=== PATIENT | male | born 1955 | race Caucasian/White ===

== ENCOUNTER → 2017-04-09 | Day surgery (SDC) | payer BC ==
[~2017-04-09] MED LIST: DOPamine 400 MG/D5W 250 ML 250 ML ONE; Heparin 10,000 UNITS/1 ML VIAL ONE; PHENYLEPHRINE-NS 100 MCG/ML 10 ML SYRINGE ONE; Phenylephrine 10 MG/NS 250 ML 250 ML ONE; Propofol 500 MG/50 ML VIAL ONE
[2017-04-09 07:45] LABS: #Basophils 0.1 thou/uL (0.0-0.2); #Eosinphils 0.1 thou/uL (0.0-0.7); #Lymphocytes 1.4 thou/uL (1.20-3.40); #Monocytes 0.4 thou/uL (0.11-0.59); #Neutrophils 3.2 thou/uL (1.40-6.50); %Eosinophils 2.7 % (0.0-10.0); %Lymphocytes 26.7 % (21.0-51.0); %Monocytes 7.4 % (0.0-10.0); %Neutrophils 62.3 % (42.0-75.0); Mean Corpuscular Hemoglobin 30.8 pg (27.0-31.0); Mean Corpuscular Volume 93.3 fl (80.0-94.0); Mean Platelet Volume 6.9 fL (7.4-10.4); Platelet Count 186 thou/uL (130-400); Red Blood Cell (RBC) Count 4.88 mill/uL (4.70-6.10); White Blood Cell (WBC) Count 5.1 thou/uL (4.8-10.8)
[2017-04-09 07:56] LABS: Prothrombin Time 12.9 SEC (12.0-14.7)
[2017-04-09 07:57] LABS: PTT 31.5 SEC (22.9-36.1)
[2017-04-09 08:05] LABS: Anion Gap 14 mmol/L (10-20); BUN (Urea Nitrogen) 20 mg/dL (8.4-25.7); Calc. Creatinine Clearance 103 mL/min (70-130); Calcium 9.5 mg/dL (7.8-10.44); Carbon Dioxide 22 mmol/L (23-31); Chloride 108 mmol/L (98-107); Estimated GFR-MDRD 69; Glucose 115 mg/dL (80-115); Potassium 4.1 mmol/L (3.5-5.1); Sodium 140 mmol/L (136-145)
--- NOTE | 2017-04-09 14:13 | OP ---
DATE OF PROCEDURE: 04/09/2017 ELECTROPHYSIOLOGY STUDY AND ATRIAL FLUTTER ABLATION REPORT REFERRING PHYSICIAN: Dr. Lunsford REASON FOR PROCEDURE: Mr. Monaco is a 61-year-old man with prior history of hypertension, hyperlipidemia, and normal LVEF, who presented with sustained typical appearing atrial flutter on 03/29/2017 which spontaneously terminated. He had prior episodes of sustained palpitations as well. He is here for atrial flutter ablation. PROCEDURE: The patient received deep sedation by Anesthesia specialist. After adequate level of sedation achieved, the right femoral venous area was prepped, draped and anesthetized with subcutaneous lidocaine and with a multipurpose needle, two 8-Stateless short sheaths were introduced. Through this a standard Decapolar CS catheter was advanced to His bundle, right ventricle, right atrial and eventually the CS area. Also, a ThermoCool SSFT catheter was advanced into the right atrium. Comprehensive EP study was performed with the following findings; Baseline CL is 1100 milliseconds in sinus rhythm, WA 178, QRS 86, QT 384, AH 121, HV 52 milliseconds. The sinus node recovery time is 1835, corrected 235 milliseconds. The AV Wenckebach cycle length was 300 milliseconds. AV alhaji ERP was 600/360 at baseline. No dual AV alhaji physiology was observed. Burst atrial pacing did not induce sustained atrial flutter, but due to the typical appearance of the presenting rhythm on EKG, we decided to proceed with cavotricuspid isthmus ablation. 3D mapping of the right atrium was obtained. During CS pacing cavotricuspid isthmus ablation was performed with a total of 5 ablations and total burn time about 6 minutes of 40 arriola lesions delivered. Temperature was monitored throughout. With the CTI ablation the trans-isthmus time increased from initial 30 milliseconds to 170 milliseconds. Cavotricuspid isthmus block was demonstrated with activation mapping during CS proximal pacing demonstrating longest activation times by the cavotricuspid isthmus ablation line. Subsequently, repeat EP study was performed demonstrating not re-inducible atrial flutter. On the other hand spontaneous PACs and were seen during the dopamine administration. Very short burst of PVCs were also observe. CONCLUSION: 1. Successful cavotricuspid isthmus ablation. 2. No re-inducible sustained arrhythmias. PLAN: Continue aspirin, hence low CHADS VAS score and monitor for development of further atrial arrhythmias. At this point, it is reasonable to continue beta blockade as well if needed. MTDD
--- NOTE | 2017-04-10 23:34 | EKG ---
Test Reason : PREOP Blood Pressure : / mmHG Vent. Rate : 050 BPM Atrial Rate : 050 BPM P-R Int : 178 ms QRS Dur : 076 ms QT Int : 396 ms P-R-T Axes : 065 014 029 degrees QTc Int : 361 ms Sinus bradycardia Otherwise normal ECG When compared with ECG of 09-MAY-1996 15:20, No significant change was found Confirmed by Meggan CHEUNG ([id number]) on 04/10/2017 11:34:42 PM Referred By: [facility] Confirmed By:Meggan CHEUNG
--- NOTE | 2017-04-10 23:36 | EKG ---
Test Reason : POST ABLATION Blood Pressure : / mmHG Vent. Rate : 043 BPM Atrial Rate : 043 BPM P-R Int : 214 ms QRS Dur : 088 ms QT Int : 446 ms P-R-T Axes : 025 046 015 degrees QTc Int : 376 ms Marked sinus bradycardia with 1st degree A-V block Abnormal ECG When compared with ECG of 09-APR-2017 07:45, (Unconfirmed) KS interval has increased Confirmed by Meggan CHEUNG ([id number]) on 04/10/2017 11:35:33 PM Referred By: [facility] Confirmed By:Meggan CHEUNG
== END ==
LOC: CCL 05:50
PROVIDERS: ATTEND Internal Medicine Cardiovascular Disease
DX: I48.92 Unspecified atrial flutter (principal); I10 Essential (primary) hypertension; E78.5 Hyperlipidemia, unspecified; Z79.899 Other long term (current) drug therapy; Z98.52 Vasectomy status; Z87.19 Personal history of other diseases of the digestive system
CPT/HCPCS: 36415; 80048; 85025; 85610; 85730; 93005; 93010; 93613; 93623; 93653; C1730; C1769; J1265; J1644; J2704

== ENCOUNTER 2018-08-28 00:36 | Outpatient (CLI) | payer BC ==
[2018-08-28 08:54] LABS: Hemoglobin 14.1 g/dL (14.0-18.0); Mean Corpuscular HGB CONC 33.3 g/dL (32.0-36.0); Mean Corpuscular Hemoglobin 31.3 pg (27.0-31.0); Mean Corpuscular Volume 93.8 fL (78.0-98.0); Mean Platelet Volume 7.6 fL (7.4-10.4); Platelet Count 169 thou/uL (130-400); Red Blood Cell (RBC) Count 4.51 mill/uL (4.70-6.10); White Blood Cell (WBC) Count 5.7 thou/uL (4.8-10.8)
[2018-08-28 08:58] LABS: INR-International Normal Ratio 1.1; Prothrombin Time 13.8 SEC (12.0-14.7)
[2018-08-28 08:59] LABS: PTT 34.4 SEC (22.9-36.1)
[2018-08-28 09:23] LABS: Anion Gap 11 mmol/L (10-20); BUN (Urea Nitrogen) 18 mg/dL (8.4-25.7); Calc. Creatinine Clearance 0 mL/min (70-130); Calcium 9.7 mg/dL (7.8-10.44); Carbon Dioxide 27 mmol/L (23-31); Chloride 108 mmol/L (98-107); Estimated GFR-MDRD 62; Glucose 108 mg/dL (80-115); Potassium 4.5 mmol/L (3.5-5.1); Sodium 141 mmol/L (136-145)
--- NOTE | 2018-08-30 21:11 | EKG ---
Test Reason : Blood Pressure : / mmHG Vent. Rate : 040 BPM Atrial Rate : 040 BPM P-R Int : 204 ms QRS Dur : 082 ms QT Int : 448 ms P-R-T Axes : 053 038 037 degrees QTc Int : 365 ms Marked sinus bradycardia Abnormal ECG When compared with ECG of 09-APR-2017 10:28, No significant change was found Confirmed by Meggan CHEUNG ([id number]) on 08/30/2018 9:11:09 PM Referred By: [facility] Confirmed By:eMggan CHEUNG
== END 2018-08-28 00:37 | disposition home or self-care (01) ==
LOC: LABBT 00:36
PROVIDERS: ATTEND Internal Medicine Cardiovascular Disease
DX: Z01.818 Encounter for other preprocedural examination (principal); I48.91 Unspecified atrial fibrillation
CPT/HCPCS: 80048; 85027; 85610; 85730; 93005; 93010

== ENCOUNTER 2018-09-02 05:58 | Observation (INO) | payer BC ==
[2018-08-28 08:08] VITALS: BMI 30.3
[2018-09-02] MEDS ORDERED: Heparin 10,000 UNITS/1 ML VIAL ONE ×2 (06:35→09:28)
[2018-09-02] MEDS ORDERED: Lidocaine 1% (PF) 30 ML VIAL ONE (06:36)
[2018-09-02] MEDS ORDERED: Midazolam HCl 2 mg/2 ml Vial ONE (08:08)
[2018-09-02] MEDS ORDERED: Heparin 25,000 units/D5W 500 ML ONE (08:49)
[2018-09-02] MEDS ORDERED: Isoproterenol 0.2 MG/1 ML AMP ONE (10:31)
[2018-09-02] MEDS ORDERED: Protamine Sulfate 50 MG/5 ML VIAL ONE (11:15)
[2018-09-02] MEDS ORDERED: ePHEDrine 50 MG/ML VIAL ONE (12:07)
[2018-09-02] MEDS ORDERED: Ondansetron PF 4 MG/2 ML Vial ONE (12:07)
[2018-09-02] MEDS ORDERED: Heparin 30,000 units/30 ml VIAL ONE (12:07)
[2018-09-02] MEDS ORDERED: Rocuronium Bromide 10 MG/ML (10ML VIAL) ONE (12:07)
[2018-09-02] MEDS ORDERED: PROPOFOL 200 MG/20 ML VIAL ONE (12:07)
[2018-09-02] MEDS ORDERED: Glycopyrrolate 0.2 MG/ML 5 ML SYRINGE ONE (12:07)
[2018-09-02] MEDS ORDERED: Phenylephrine HCL 10 MG/ML VIAL ONE (12:07)
[2018-09-02] MEDS ORDERED: Lidocaine 1% PF 5 ML VIAL ONE (12:07)
[2018-09-02] MEDS ORDERED: Ketorolac Tromethamine 30 MG/ML VIAL ONE (12:42)
[2018-09-02] MEDS ORDERED: Acetaminophen/Codeine 30-300mg Tablet PO PRN ×2 (14:03→14:04)
[2018-09-02] MEDS ORDERED: Nebivolol HCl 5 MG TAB PO SCH (21:00)
[2018-09-02] MEDS ORDERED: Apixaban 5 MG TAB PO SCH (21:00)
[2018-09-02] MEDS ORDERED: Doxazosin 2 MG TAB PO SCH (21:00)
[2018-09-02] MEDS ORDERED: Atorvastatin Calcium 40 MG TAB PO SCH (21:00)
[2018-09-02] MEDS ORDERED: Allopurinol 100 MG TAB PO SCH (21:00)
[2018-09-03] MEDS: Ketorolac Tromethamine 30 MG/ML VIAL IVP PRN ×2 (03:04→11:18)
[2018-09-03 08:19] VITALS: BP 123/69; TEMP 98.7
[2018-09-03] MEDS ORDERED: Fish Oil 1,000 MG CAP PO SCH (09:00)
[2018-09-03] MEDS ORDERED: GLUCOSAMINE PO SCH (09:00)
[2018-09-03] MEDS ORDERED: Multivit, Therapeutic 1 TAB PO SCH (09:00)
[2018-09-03] MEDS ORDERED: CHONDROITIN PO SCH (09:00)
[2018-09-03] MEDS ORDERED: Aspirin Chewable 81 MG TAB PO SCH (09:00)
--- NOTE | 2018-09-03 10:10 | OP ---
DATE OF PROCEDURE: 09/02/2018 PROCEDURES PERFORMED: Electrophysiology study and radiofrequency ablation. REASON FOR PROCEDURE: Mr. Monaco is a 62-year-old man with history of paroxysmal atrial fibrillation, on Eliquis. He is here for pulmonary venous isolation procedure. DESCRIPTION OF PROCEDURE: The patient received propofol by Anesthesia specialist. After adequate level of sedation achieved, the left and right femoral veins were prepped, draped, and anesthetized with subcutaneous lidocaine. Under ultrasound guidance, both femoral veins were cannulated x2. On the left side, an 11-Armenian sheath was used to advance the intracardiac echocardiogram probe to monitor transseptal procedure and hemodynamic throughout the procedure. Also on the left, a Preface sheath was used tpo advance a bart-deca catheter to cannulate the CS. On the right Vemoral venous side, two 8-Armenian short sheaths were introduced. Initially, a ThermoCool SFST catheter was used to obtain the right atrial map. Following that, an SL1 sheath was used to perform transseptal puncture. Under intracardiac echo monitoring after administration of IV bolus and drip, heparin, the IV heparin was administered throughout the procedure and monitored to keep ACT over 350. The SL1 transseptal punctures was exchanged over the wire to Agilis deflectable sheath catheter. Following that, a 20-pole Lasso catheter and a ThermoCool SFST catheter were advanced to the left atrium. 3D map of the left atrium was performed, and pulmonary venous isolation of all 4 pulmonary veins were achieved with wide area circular ablation. Throughout the case, the esophageal probe was used to monitor the esophageal temperature to avoid excessive heating. The posterior wall was also isolated using superior and inferior line. A total number of ablations delivered were 21. Total ablation time was 13 minutes and 46 seconds. Following this, basic EP study was performed. Baseline rhythm is sinus rhythm with cycle length of 1267 milliseconds, OK 97 milliseconds, QRS 43, QT 427, AH 74, and the HV 56 milliseconds. The AV Wenckebach cycle length was 360 milliseconds. Retrograde VA cycle length was 320 milliseconds. The concentric retrograde VA conduction was observed, but no tachycardia was seen during extrastimuli testing. AV alhaji ERP was measured to be at 600/260 milliseconds. Concentric retrograde VA conduction was seen. Burst atrial pacing was performed also, and we were unable to induce supraventricular tachycardia or atrial arrhythmias. Isuprel was administered at this point, a 20 mcg. The pulmonary veins were rechecked for any reconnection, and any reconnection was re-ablated. At the end of the case, the cardiac silhouette and intracardiac echo were used to check for any effusion, no significant effusion was seen. The Isuprel was stopped. IV heparin was stopped after pulling the catheter and sheath back to the right side. The catheter was removed, and Vascade closure of all 4 access sites were performed. CONCLUSION: 1. Successful pulmonary venous isolation and posterior wall ablation procedure. 2. No evidence of accessory pathway. 3. Dual atrioventricular node physiology without inducible atrioventricular alhaji reentry tachycardia. 4. Normal atrioventricular alhaji function. PLAN: Continue oral anticoagulation and monitor for recurrent arrhythmias. Job ID: [id number] [facility]
--- NOTE | 2018-09-03 20:44 | DIS ---
DATE OF ADMISSION: 09/02/2018 DATE OF DISCHARGE: 09/03/2018 DIAGNOSIS: Atrial fibrillation. PROCEDURES PERFORMED: Three dimensional mapping and radiofrequency ablation for atrial fibrillation, vascular device closure with Vascade. 13 minutes RF energy delivered. Successful isolation of 4 PV in addtional to posterior wall ablation HISTORY OF PRESENT ILLNESS: Mr. Monaco is a pleasant 62-year-old gentleman with a history of recurrent atrial arrhythmias. Atrial flutter ablation was performed in the past with no recurrence of atrial flutter. However, he was now seen to have atrial fibrillation episodes and was admitted for an elective outpatient pulmonary venous isolation procedure. This was performed on 09/02. There have been no postablation complications. He was previously on Multaq which was stopped leading up to his ablation. SUBJECTIVE: Mr. Monaco is feeling well this morning. He has not had any bleeding or complications at the groin sites. He had Vascade closure devices. He does have some reproducible chest discomfort and shortness of breath with deep inspiration and also positional. This was responsive to treatment with Toradol. He was also given T3 with no effect. He denies any heart racing, palpitations, syncope, near syncope, stroke, stroke-like symptoms. He is tolerating p.o. intake well, ambulating throughout the hernandez and urinating without difficulty. He has not had any additional cardiac concerns or complaints. OBJECTIVE: VITAL SIGNS: Temp 98.7, pulse 56, blood pressure 123/69, respirations 16, oxygen is 93% on room air. GENERAL: The patient is alert, oriented. Speech is clear. Affect is appropriate. NECK: Supple without jugular venous distention. LUNGS: Clear to auscultation bilaterally without wheezes, crackles, or rhonchi. Respirations have been even and unlabored. HEART: Rate is irregularly irregular with crisp S1 and S2. ABDOMEN: Obese, soft, nontender without palpable masses. Bilateral groin sites are stable without bleeding or hematoma complications. EXTREMITIES: Warm and dry to touch without clubbing, cyanosis, or edema. NEUROLOGICAL: Grossly intact and nonfocal and his gait is stable. Hepatojugular reflux is also negative. DATABASE: EKG and telemetry show sinus rhythm without recurrence of atrial arrhythmias since the time of ablation. No significant amount of atrial ectopy is seen either. DISCHARGE MEDICATIONS: Resuming home medications of: 1. Fish oil daily. 2. Bystolic 5 mg at bedtime. 3. Multivitamin daily. 4. Glucosamine chondroitin p.o. daily. 5. Cardura 4 mg at bedtime. 6. Eliquis 5 mg p.o. b.i.d. 7. Allopurinol 80 mg p.o. at bedtime. New prescriptions electronically sent in include: 1. Carafate 1 g p.o. before meals and at bedtime x2 weeks. 2. Pantoprazole 40 mg daily x1 month. 3. Ibuprofen to be taken 200 mg tablets 2-3 tabs q.6 hours p.r.n. chest discomfort. 4. P.r.n. Lasix 40 mg for shortness of breath, weight gain, or fluid retention, to be taken with 20 mEq of potassium on a as needed basis. DISCHARGE INSTRUCTIONS: Do not restart antiarrhythmic medication unless recurrence is seen. No lifting more than 10 pounds for 1 week or soaking baths for one week, then resume activity gradually as tolerated. Followup appointment is in his discharge instructions for 6 weeks. He will contact [facility] with any postablation concerns in the interim. CONDITION AT DISCHARGE: Stable. Job ID: [id number] [facility]
== END 2018-09-03 12:07 | disposition home or self-care (01) ==
LOC: CCL 05:58 → 2SW 11:05
PROVIDERS: ADMIT Internal Medicine Cardiovascular Disease; ATTEND Internal Medicine Cardiovascular Disease
PROC: 4A023FZ Measurement of Cardiac Rhythm, Percutaneous Approach (ICD-10-PCS; principal; 2018-09-03)
PROC: 4A0234Z Measurement of Cardiac Electrical Activity, Percutaneous Approach (ICD-10-PCS; 2018-09-03)
PROC: 02583ZZ Destruction of Conduction Mechanism, Percutaneous Approach (ICD-10-PCS; 2018-09-03)
PROC: 02K83ZZ Map Conduction Mechanism, Percutaneous Approach (ICD-10-PCS; 2018-09-03)
DX: I48.0 Paroxysmal atrial fibrillation (principal); R00.1 Bradycardia, unspecified; I10 Essential (primary) hypertension; E78.5 Hyperlipidemia, unspecified; Z79.899 Other long term (current) drug therapy
CPT/HCPCS: 76942; 85347; 93005; 93010; 93613; 93622; 93623; 93656; 93657; 93662; 96374; 96376; C1731; C1732; C1759; C1769; G0378; J1644; J1885; J2001; J2250; J2370; J2405; J2704; J2720; J3490

== ENCOUNTER 2018-10-09 12:06 | Outpatient (CLI) | payer BC ==
--- NOTE | 2018-10-09 13:43 | MRI ---
MRI of the cervical spine: 10/09/2018 COMPARISON: None HISTORY: Cervical disc disorder with radiculopathy TECHNIQUE: Multiplanar multisequence MR imaging of the cervical spine obtained without contrast. FINDINGS: The sagittal STIR imaging demonstrates no focal area of osseous marrow edema. Mild degenerative change noted at the atlantoaxial interspace. Craniocervical junction appears intact . No significant anterolisthesis or retrolisthesis is seen. C2-3: Mild bilateral facet hypertrophy noted, right greater than left. Disc desiccation present. No s ignificant central canal or neural foraminal stenosis. C3-4: Disc space narrowing, disc desiccation, and mild disc bulge with mild central canal stenosis. B ilateral facet and uncovertebral osteophyte formation, right greater than left. Moderate bilateral neural foraminal stenosis C4-5: Disc space narrowing and disc desiccation with disc bulge effacing the ventral thecal sac and c ausing moderate central canal stenosis. Anterior osteophyte formation noted. Significant bilateral facet and uncovertebral osteophyte formation with severe bilateral neural foraminal stenosis. C5-6: There is disc space narrowing and disc desiccation with disc bulge and a small superimposed raj tral/left paracentral disc protrusion causing moderate central canal stenosis. Facet and uncovertebral osteophyte formation noted bilaterally, right greater than left, with moderate right an d mild left neural foraminal stenosis C6-7: There is disc space narrowing and disc desiccation with disc bulge and a small superimposed lef t paracentral disc protrusion causing a mild degree of central canal stenosis. Mild bilateral facet and uncovertebral osteophyte formation with mild bilateral neural foraminal stenosis, right greater t [place] left. C7-T1: No significant central canal stenosis. Bilateral facet hypertrophy with moderate bilateral candido ral foraminal stenosis, right greater than left. There is a focal area of abnormal increased T2 signal intensity within the cervical cord at C4-5. The re is volume loss of the cord in this region as well. Findings suggest myelomalacia on the basis of chronic compression. IMPRESSION: Prominent multilevel degenerative change noted within the cervical spine as detailed abov e. There is increased T2 signal intensity with volume loss involving the cervical cord at C4-5.
--- NOTE | 2018-10-09 14:11 | CT ---
CT of the chest with and without IV contrast: 10/09/2018 COMPARISON: None HISTORY: Palpable nodule on right "shoulder blade area" with right shoulder pain for 6 months TECHNIQUE: Axial CT imaging at 3 mm intervals through the chest with and without IV contrast obtained . FINDINGS: In the area of palpable concern there is a needle cap marking the area. This is noted in th e posterior right supraclavicular region at the axial level of the right acromioclavicular joint. In this region, there is no soft tissue mass, fluid collection, skin thickening, or abnormal density within the subcutaneous fat. Scattered atherosclerotic calcification of the carotid system noted within the neck. There is scatter ed coronary arterial atherosclerotic calcification. Limited assessment of the upper abdomen appears grossly unremarkable. There is no pleural, pericardia l, or mediastinal fluid. The lung parenchyma demonstrates no acute findings on either side. No endobronchial lesion is noted. Review of the osseous structures demonstrates degenerative change involving bilateral acromioclavicul ar joints, right greater than left. There is also bilateral degenerative change involving the glenohumeral joints, right greater than left. No acute fracture or evidence of dislocation. No worrisome lytic or blastic bone lesion. IMPRESSION: Incidental findings as detailed above. No CT abnormality seen in the area of palpable con cern. Transcribed Date/Time: 10/09/2018 3:54 PM
== END 2018-10-09 12:07 | disposition home or self-care (01) ==
LOC: BICMRI 12:06
PROVIDERS: ATTEND Internal Medicine
DX: M50.13 Cervical disc disorder with radiculopathy, cervicothoracic region (principal); M62.89 Other specified disorders of muscle; M47.22 Other spondylosis with radiculopathy, cervical region
CPT/HCPCS: 71270; 72141

== ENCOUNTER 2022-04-27 13:52 | Outpatient (CLI) | payer BC | END 2022-04-27 13:53 | disposition home or self-care (01) | LOC: BICRAD 13:52 | PROVIDERS: ATTEND Family Medicine | DX: M17.12 Unilateral primary osteoarthritis, left knee (principal); M11.262 Other chondrocalcinosis, left knee ==